=== PATIENT | male | born 1945 | race Caucasian/White ===

== ENCOUNTER 2018-08-23 11:10 | Emergency (ER) | payer OTHER ==
[2018-08-23 11:20] VITALS: TEMP 98.6; BMI 23.6
[2018-08-23] MEDS ORDERED: morphine CARPU-JECT 4 MG/1 ML DISP.SYRIN IVPUSH ONE (11:47)
[2018-08-23] MEDS ORDERED: morphine SULFATE 4 MG/ML VIAL ONE (11:50)
--- NOTE | 2018-08-23 12:43 | PDOC ---
Documentation entered by Lenin Ryder SCRIBE, acting as scribe for Kendall Weaver MD. Kendall Weaver MD: This documentation has been prepared by the Aleksey rodríguez Joel, SCRIBE, under my direction and personally reviewed by me in its entirety. I confirm that the documentation accurately reflects all work, treatment, procedures, and medical decision making performed by me. History of Present Illness - General Chief Complaint: Injury Stated Complaint: FALL Time Seen by Provider: 08/23/18 11:41 History Source: Patient Exam Limitations: No Limitations - History of Present Illness Initial Comments: 08/23/18 11:54 The patient is a 73 year old male with no significant PMH who presents to the emergency department with left shoulder pain s/p mechanical fall prior to arrival. The patient states he was running when he tripped and fell, bracing his impact primarily with his left hand. He states that he landed directly onto his L shoulder and L knee. The patient also presents with left knee abrasions but denies any pain there. He reports being able to stand and ambulate after the fall. The patient denies hitting his head or LOC. He denies dizziness or lightheadedness. He notes he has received a Tetanus shot within the past 10 years. The patient denies any chest pain, shortness of breath, palpitations, or lightheadedness before or after the fall. Denies fever, chills, nausea, vomit, diarrhea and constipation. Denies dysuria, frequency, urgency and hematuria. Allergies: NKA Past surgical history: None reported. Social history: No reported cigarette, alcohol, or drug use. PCP: Dr. Penn Past History - Past Medical History Allergies/Adverse Reactions: Allergies Allergy/AdvReac Type Severity Reaction Status Date / Time No Known Allergies Allergy Verified 08/23/18 11:21 Home Medications: Ambulatory Orders Atorvastatin Ca [Lipitor] 20 mg PO HS 08/23/18 Naproxen 500 mg PO BID PRN #14 tablet 08/23/18 COPD: No - Immunization History Immunization Up to Date: (unknown) - Suicide/Smoking/Psychosocial Hx Smoking History: Never smoked Hx Alcohol Use: No Drug/Substance Use Hx: No Review of Systems - Review of Systems Able to Perform ROS?: Yes Comments:: 08/23/18 11:54 GENERAL/CONSTITUTIONAL: No fever or chills. No weakness. HEAD, EYES, EARS, NOSE AND THROAT: No change in vision. No ear pain or discharge. No sore throat. CARDIOVASCULAR: No chest pain, no shortness of breath, no loss of consciousness RESPIRATORY: No cough, wheezing, or hemoptysis. GASTROINTESTINAL: No nausea, vomiting, diarrhea or constipation. GENITOURINARY: No dysuria, frequency, or change in urination. MUSCULOSKELETAL: (+) Left shoulder pain. No joint or muscle swelling or pain. No neck or back pain. SKIN: (+) Left knee abrasions. NEUROLOGIC: No vertigo, no change in strength/sensation. ENDOCRINE: No increased thirst. No abnormal weight change. HEMATOLOGIC/LYMPHATIC: No anemia, easy bleeding, or history of blood clots. ALLERGIC/IMMUNOLOGIC: No hives or skin allergy. *Physical Exam - Vital Signs Last Vital Signs Temp Pulse Resp BP Pulse Ox 98.6 F 55 L 19 130/83 96 08/23/18 11:19 08/23/18 11:19 08/23/18 11:19 08/23/18 11:19 08/23/18 11:19 - Physical Exam Comments: 08/23/18 12:01 GENERAL: Awake, alert, and fully oriented, in no acute distress. HEAD: No signs of trauma EYES: PERRLA, EOMI, sclera anicteric, conjunctiva clear ENT: Auricles normal inspection, hearing grossly normal, nares patent, oropharynx clear without exudates. Moist mucosa NECK: Nontender, no stepoffs, Normal ROM, supple, no lymphadenopathy, JVD, or masses LUNGS: Breath sounds equal, clear to auscultation bilaterally. No wheezes, and no crackles HEART: Regular rate and rhythm, normal S1 and S2, no murmurs, rubs or gallops ABDOMEN: Soft, nontender, normoactive bowel sounds. No guarding, no rebound. No masses EXTREMITIES: + L shoulder with flattening of deltoid, ROM severely limited 2/2 pain, sensation intact, no snuffbox tenderness NEUROLOGICAL: Cranial nerves II through XII intact. 5/5 strength and sensation in all extremities, Normal speech, normal gait, normal cerebellar function SKIN: + abrasion to L knee, no lacs Moderate Sedation - Pre-Procedure Assessment Joint Reduction Is this a Moderate (Conscious) sedation patient?: Yes Med/Surg Hx & PE performed: Yes Vital Signs: Vital Signs Temp Pulse Resp BP Pulse Ox 98.6 F 68 17 156/78 99 08/23/18 11:19 08/23/18 14:50 08/23/18 14:50 08/23/18 14:50 08/23/18 14:50 Does the patient have a history of Obstructive Sleep Apnea: No Prior complications with sedation/analgesia: No Consent obtained: Written, From Patient Items checked for time out procedure: All work stopped, Patient identified using 2 identifiers, Procedure to be performed verified & agreed, Allergies noted, Consent read, ED physician/FILM REPLACEMENT ORDERER/PA/Resident identified, Patient position verified, All active procedure participants present from the beginning Sedation agent: Ketamine - Post Procedure Assessment Tolerated procedure well: Yes Was a reversal agent used?: No Patient evaluation: Awake, alert and oriented, Vital signs reviewed, Cardiopulmonary exam normal, Pain controlled ED Treatment Course - RADIOLOGY Radiology Studies Ordered: Category Date Time Status CERVICAL SPINE CT W/O CONTR [CT] Stat CT Scan 08/23/18 11:[address] WITHOUT CONTRAST [CT] Stat CT Scan 08/23/18 11:[address] W/O CONTRAST [CT] Stat CT Scan 08/23/18 11:48 Ordered CHEST PA & LAT [RAD] Stat Radiology 08/23/18 11:47 Ordered HUMERUS-LEFT [RAD] Stat Radiology 08/23/18 11:47 Ordered SHOULDER-LEFT [RAD] Stat Radiology 08/23/18 11:47 Ordered - Medications Given in the ED: ED Medications Discontinued Medications Generic Name Dose Route Start Last Admin Trade Name Freq PRN Reason Stop Dose Admin Morphine Sulfate 4 mg 08/23/18 11:47 08/23/18 12:00 Morphine Injection - IVPUSH 08/23/18 11:48 4 mg ONCE ONE Administration Medical Decision Making - Medical Decision Making 08/23/18 12:36 73 M with L shoulder pain and deformity after mechanical fall. Suspect dislocation vs fx. Will obtain CT head/c-spine given age but pt has no signs of head or neck trauma on exam. - CT head/c-spine - XR L shoulder/humerus - Pain control 08/23/18 14:51 CTs negative XR shows L shoulder dislocation Pt consented for procedural sedation and reduction Given ketamine 100mg IV Shoulder reduced with traction/countertraction Post-reduction XR ordered 08/23/18 16:48 Repeat XR with successful reduction Pt is well appearing, with normal vitals. Clinically stable for DC at this time. I discussed the physical exam findings, ancillary test results and final diagnoses with the patient. I answered all of the patient's questions. The patient was satisfied with the care received and felt comfortable with the discharge plan and treatment plan. The patient agrees to follow up with the primary care physician within 24-72 hours. *DC/Admit/Observation/Transfer Diagnosis at time of Disposition: Shoulder dislocation - Discharge Dispostion Disposition: HOME - Prescriptions Prescriptions: Naproxen 500 mg PO BID PRN #14 tablet PRN Reason: Pain - Referrals Referrals: Olu Nunez DO [Staff Physician] - Manohar Hammond DO [Staff Physician] - - Patient Instructions Printed Discharge Instructions: DI for Shoulder Dislocation, DI for Moderate Sedation Additional Instructions: You suffered a shoulder dislocation today. Although we were able to put it back in place, it is possible that you suffered a rotator cuff injury or other injury to your shoulder. You will need to be seen by an orthopedic surgeon and likely have a MRI to further evaluate your injury. Call the number provided to make an appointment within 1 week. Keep your shoulder immobilized in the sling until you are able to see the orthopedist. If you experience worsening pain, numbness in your arm, weakness in your wrist or hand, discoloration of the limb, or any other concerning symptoms, return to the ER immediately. - Post Discharge Activity - Attestations Physician Attestion: 08/23/18 16:00 I, Dr. Kendall Weaver MD, attest that this document has been prepared under my direction and personally reviewed by me in its entirety. I further attest, that it accurately reflects all work, treatment, procedures and medical decision -making performed by me.
[2018-08-23] MEDS ORDERED: KETAMINE HCL 200 MG/20 ML VIAL IVPUSH ONE (14:19)
[2018-08-23] MEDS ORDERED: ONDANSETRON 4 MG/2 ML VIAL IVPUSH ONE (14:20)
--- NOTE | 2018-08-23 14:21 | PDOC ---
*Physical Exam - Vital Signs Last Vital Signs Temp Pulse Resp BP Pulse Ox 98.6 F 55 L 19 130/83 96 08/23/18 11:19 08/23/18 11:19 08/23/18 11:19 08/23/18 11:19 08/23/18 11:19 - Physical Exam General Appearance: Yes: Nourished, Appropriately Dressed. No: Apparent Distress HEENT: positive: Normal ENT Inspection, Normal Voice Neck: positive: Supple Respiratory/Chest: positive: Lungs Clear, Normal Breath Sounds Cardiovascular: positive: Regular Rhythm, Regular Rate, S1, S2 Vascular Pulses: Dorsalis-Pedis (R): 2+, Doralis-Pedis (L): 2+ Gastrointestinal/Abdominal: positive: Soft Rectal Exam: positive: deferred Lymphatic: negative: Adenopathy Musculoskeletal: positive: Decreased Range of Motion, Other (Left shoulder is dislocated). negative: Normal Inspection, Vertebral Tenderness Extremity: positive: Normal Capillary Refill, Normal Inspection. negative: Normal Range of Motion (Left shoulder limited ROM) Integumentary: positive: Normal Color, Dry, Warm Neurologic: positive: Fully Oriented, Alert, Normal Mood/Affect ED Treatment Course - RADIOLOGY Radiograph Interpretation: Shoulder XR: Pre-reduction. Left shoulder: Pain. Fall. 3 view of the left shoulder reveal an anterior dislocation of the humeral head. The AC joint, scapula and upper ribs are intact. A gross fracture is not seen. After relocation, follow-up imaging is needed to exclude a fracture. Correlation recommended. Shoulder XR: Post-Reduction. Left shoulder one view Clinical information: status post reduction In comparison to radiography performed earlier the same date there has been interval reduction of an anterior glenohumeral dislocation. On the basis of this single view no obvious fracture is identified. - Medications Given in the ED: ED Medications Discontinued Medications Generic Name Dose Route Start Last Admin Trade Name Freq PRN Reason Stop Dose Admin Morphine Sulfate 4 mg 08/23/18 11:47 08/23/18 12:00 Morphine Injection - IVPUSH 08/23/18 11:48 4 mg ONCE ONE Administration Medical Decision Making - Medical Decision Making 73 yo M w an anteriorly dislocated left shoulder. Plan: Procedural sedation with ketamine, reduce shoulder with traction - counter traction method. - Informed consent obtained for procedural sedation and shoulder reduction - 100 mg Ketamine given - Shoulder reduced into correct place - Patient brought over to XR for confirmation. - XR confirmed proper placement. - Patient placed in sling and given ortho as FU *DC/Admit/Observation/Transfer Diagnosis at time of Disposition: Shoulder dislocation - Discharge Dispostion Disposition: HOME - Prescriptions Prescriptions: Naproxen 500 mg PO BID PRN #14 tablet PRN Reason: Pain - Referrals Referrals: Olu Nunez DO [Staff Physician] - Manohar Hammond DO [Staff Physician] - - Patient Instructions Printed Discharge Instructions: DI for Shoulder Dislocation, DI for Moderate Sedation Additional Instructions: You suffered a shoulder dislocation today. Although we were able to put it back in place, it is possible that you suffered a rotator cuff injury or other injury to your shoulder. You will need to be seen by an orthopedic surgeon and likely have a MRI to further evaluate your injury. Call the number provided to make an appointment within 1 week. Keep your shoulder immobilized in the sling until you are able to see the orthopedist. If you experience worsening pain, numbness in your arm, weakness in your wrist or hand, discoloration of the limb, or any other concerning symptoms, return to the ER immediately. - Post Discharge Activity Procedures - Consent Consent obtained: Verbal, Written, From Patient, From Guardians (Procedural sedation) - Joint Reduction Left Joint Reduction Site: left: Shoulder Pre-Procedure NV Exam: normal Conscious Sedation: Yes (100 mg Ketamine) Reduction Attempts: 1 Procedure: Traction Counter Traction Post-Procedure NV Exam: normal Complications: No Post Joint Reduction Film: joint reduced Splint: Yes Immobilized: Yes
[2018-08-23] MEDS ORDERED: KETAMINE HCL 200 MG/20 ML VIAL ONE (14:22)
[2018-08-23] MEDS ORDERED: ONDANSETRON 4 MG/2 ML VIAL ONE (14:23)
[2018-08-23] MEDS ORDERED: BACITRACIN 0.9 GM PACKET ONE (16:08)
[2018-08-23 16:36] VITALS: BP 156/78; PULSE 68
== END 2018-08-23 17:54 | disposition home or self-care (01) ==
LOC: JER 11:10
PROC: 0RSKXZZ Reposition Left Shoulder Joint, External Approach (ICD-10-PCS; principal; 2018-08-23)
PROC: 3E033NZ Introduction of Analgesics, Hypnotics, Sedatives into Peripheral Vein, Percutaneous Approach (ICD-10-PCS; 2018-08-23)
PROC: 3E033GC Introduction of Other Therapeutic Substance into Peripheral Vein, Percutaneous Approach (ICD-10-PCS; 2018-08-23)
DX: S43.005A Unspecified dislocation of left shoulder joint, initial encounter (principal); W18.39XA Other fall on same level, initial encounter; Y93.89 Activity, other specified; Y92.89 Other specified places as the place of occurrence of the external cause
CPT/HCPCS: 70450-TC; 71046-TC-FY; 72125-TC; 72128-TC; 73030-TC-LT-FY; 73060-TC-LT-FY; 99282-25